=== PATIENT | male | born 1945 | race Caucasian/White ===

== ENCOUNTER 2021-10-03 10:07 | Inpatient (IN) | payer OTHER ==
[2021-10-03] MEDS ORDERED: Sodium Chloride 0.9% 10 ML Syringe FLUSH PRN (10:30)
[2021-10-03] MEDS ORDERED: Furosemide 40 MG/4 ML VIAL IV ONE (10:30)
--- NOTE | 2021-10-03 11:18 | EDM.PDOC ---
ED HPI GENERAL MEDICAL PROBLEM - General Chief Complaint: Lower Extremity Injury/Pain Stated Complaint: swelling in the abdomen and legs Time Seen by Provider: 10/03/21 10:20 Source of Information: Reports: Patient History Limitations: Reports: No Limitations - History of Present Illness INITIAL COMMENTS - FREE TEXT/NARRATIVE: Patient presents to the ED for increased swelling in his legs and abdomen over the last several days. He normally goes to the [facility] and was just seen there last month for a check up. Said he was referred to gastroenterology in [place] at [facility] for cirrhosis, but has not been there yet. History of lheavy drinker, no longer. Is not on a diuretic. Lives at home alone. Minimal shortness of breath. did have some loose stools last week that were black, but no longer and he had taken something over the counter prior to this and is unsure of what it was. No pain, no fever, no cough. Is accompanied by a friend. Legs are more painful is he stands on them. better at rest. Can lay flat to sleep. Bilateral Foot Pain Score (Numeric/FACES): 10 - Related Data Allergies Allergy/AdvReac Type Severity Reaction Status Date / Time No Known Allergies Allergy Verified 10/03/21 11:33 Home Meds: Home Meds Albuterol Sulfate [Albuterol Sulfate Hfa] 2 puff IH Q6H PRN 10/03/21 [History] Cholecalciferol (Vitamin D3) [Vitamin D3] 2,000 unit PO DAILY 10/03/21 [History] Dabigatran Etexilate Mesylate [Pradaxa] 150 mg PO BID 10/03/21 [History] Glucosamine Sulfate Dipot Chlr [Glucosamine] 1,000 mg PO BID PRN 10/03/21 [History] Ranitidine [Zantac] 150 mg PO BID PRN 10/03/21 [History] Terazosin [Hytrin] 4 mg PO BEDTIME 10/03/21 [History] Past Medical History Cardiovascular History: Reports: Afib, High Cholesterol, Hypertension Respiratory History: Reports: Other (See Below) (former smoker) Gastrointestinal History: Reports: Cirrhosis (grade one varices ,), GERD, Other (See Below) (crohns disease, portal hypertension, splenomegaly) Genitourinary History: Reports: Prostate Disorder (BPH and ED) Dermatologic History: Reports: Other (See Below) (rosacea) - Past Surgical History GI Surgical History: Reports: Cholecystectomy, Colon (right hemicolecomy due to crohns), EGD ( with grade 1 varices 12/2020) Social & Family History - Tobacco Use Tobacco Use Status *Q: Former Tobacco User Month/Year Tobacco Last Used: 09/1976 - Alcohol Use Date/Time of Last Drink Comment: 1993 Alcohol Use in Last Twelve Months: No Review of Systems - Review of Systems Review Of Systems: See Below Constitutional: Reports: Weakness Eyes: Reports: No Symptoms Ears: Reports: No Symptoms Nose: Reports: No Symptoms Mouth/Throat: Reports: No Symptoms Respiratory: Reports: Shortness of Breath (with activity) Cardiovascular: Reports: Irregular Heart Rate (chronically) GI/Abdominal: Reports: Other (diarrhea and black ) ED EXAM, GENERAL - Physical Exam Exam: See Below Exam Limited By: Other (slight confusion) General Appearance: Alert Eye Exam: Bilateral Eye: EOMI, Normal Inspection, PERRL Ears: Normal External Exam Nose: Normal Inspection, Normal Mucosa Throat/Mouth: Normal Inspection, Normal Lips, Normal Voice, No Airway Compromise Head: Atraumatic Neck: No: Lymphadenopathy (L), Lymphadenopathy (R) Respiratory/Chest: Crackles (bases), Other (increased work of breathing) Cardiovascular: Irregularly Irregular GI/Abdominal: Other (large, obese, dense edema in the skin, hepatomegaly large panus) Back Exam: Other (piting edema on the buttocks) Neurological: Alert, Confused, Other (pleasant and cooopeative) Skin Exam: Other (edema in th elower extremities to the knees circumferentially, in the upper legs posteriorly. dense swelling) #1 Interpretation EKG Date: 10/03/21 Time: 10:53 Rhythm: A-Fib Rate (Beats/Min): 74 P-Wave: Absent QT: Prolonged Comparison: NA - No Prior EKG Course - Vital Signs Last Recorded V/S: Last Vital Signs Temp 36.6 C 10/03/21 15:45 Pulse 67 10/03/21 16:00 Resp 18 10/03/21 16:00 BP 106/42 L 10/03/21 16:00 Pulse Ox 98 10/03/21 16:00 - Orders/Labs/Meds Orders: Active Orders 24 hr Category Date Time Status Patient Status [ADT] Routine ADT 10/03/21 16:12 Active Cardiac Monitoring [RC] . DIRECTED Care 10/03/21 15:34 Active Dumont Catheter Insertion [Insert Urinary Catheter] [OM. Care 10/03/21 13:30 Ordered PC] Q24H Urinary Catheter Assessment [RC] ASDIRECTED Care 10/03/21 13:21 Active CULTURE URINE [RM] Stat Lab 10/03/21 13:33 Received RED BLOOD CELLS LP [BBK] Stat Lab 10/03/21 10:46 Results TYPE AND SCREEN [BBK] Stat Lab 10/03/21 10:46 Results Sodium Chloride 0.9% [Normal Saline] 1,000 ml Med 10/03/21 11:30 Active IV ASDIRECTED Sodium Chloride 0.9% [Saline Flush] Med 10/03/21 10:30 Active 10 ml FLUSH ASDIRECTED PRN Blood Transfusion Reflex Orders [OM.PC] Routine Oth 10/03/21 14:40 Ordered Peripheral IV Insertion Adult [OM.PC] Routine Oth 10/03/21 10:30 Ordered Medication Orders Sodium Chloride (Normal Saline) 1,000 mls @ 150 mls/hr IV ASDIRECTED ISAIAS Last Admin: 10/03/21 11:50 Dose: 150 mls/hr Documented by: LACEY Sodium Chloride (Sodium Chloride 0.9% 10 Ml Syringe) 10 ml FLUSH ASDIRECTED PRN PRN Reason: Keep Vein Open Labs: Laboratory Tests 10/03/21 10/03/21 10/03/21 Range/Units 10:46 10:46 10:46 WBC 4.1 (4.0-10.0) x10^3/uL RBC 2.25 L (4.5-6.0) x10^6/uL Hgb 6.5 L* (14.0-18.0) g/dL Hct 19.2 L (40.0-52.0) % MCV 85.3 (78.0-93.0) fL MCH 28.9 (26.0-32.0) pg MCHC 33.9 (32.0-36.0) g/dL RDW Coeff of [place] 17.4 H (10.0-15.0) % Plt Count 142 (130-400) x10^3/uL Immature Gran % (Auto) 0.50 H (0.00-0.43) % Neut % (Auto) 74.5 (50.0-80.0) % Lymph % (Auto) 7.5 L (25.0-50.0) % [place] % (Auto) 12.4 H (2.0-11.0) % Eos % (Auto) 4.4 H (0.0-4.0) % Baso % (Auto) 0.7 (0.2-1.2) % Neut # (Auto) 3.1 (1.8-7.7) x10^3/uL Lymph # (Auto) 0.3 L (1.0-4.8) x10^3/uL [place] # (Auto) 0.5 (0.0-0.8) x10^3/uL Eos # (Auto) 0.2 (0.0-0.5) x10^3/uL Baso # (Auto) 0.0 (0.0-0.2) x10^3/uL Immature Gran # (Auto) 0.02 (0.00-0.07) x10^3/uL PT 31.2 H (9.9-12.5) SEC INR 2.8 (2.0-3.5) Sodium 134 L (136-145) mmol/L Potassium 4.6 (3.5-5.1) mmol/L Chloride 100 (98-107) mmol/L Carbon Dioxide 23 (21-32) mmol/L Anion Gap 15.6 H (5-15) mmol/L BUN 53 H (7-18) mg/dL Creatinine 2.2 H (0.70-1.30) mg/dL Est Cr Clr Drug Dosing TNP Estimated GFR (MDRD) 29 Glucose 107 H (70-99) mg/dL Calcium 8.4 L (8.5-10.1) mg/dL Corrected Calcium 9.9 (8.5-10.1) mg/dL Total Bilirubin 2.9 H (0.2-1.0) mg/dL AST 53 H (15-37) U/L ALT 40 (16-63) U/L Alkaline Phosphatase 107 (46-116) U/L Ammonia (19-54) ug/dL NT-Pro-B Natriuret Pep 1450 H (<=125) pg/mL Total Protein 5.0 L (6.4-8.2) g/dL Albumin 2.1 L (3.4-5.0) g/dL Globulin 2.9 Albumin/Globulin Ratio 0.72 Lipase 397 H (73-393) U/L Urine Color (YELLOW) Urine Appearance (CLEAR) Urine pH (5.0-8.0) Ur Specific [place] Urine Protein (NEGATIVE) mg/dL Urine Glucose (UA) (NEGATIVE) mg/dL Urine Ketones (NEGATIVE) mg/dL Urine Occult Blood (NEGATIVE) Urine Nitrite (NEGATIVE) Urine Bilirubin (NEGATIVE) Urine Urobilinogen (0.2) EU/dL Ur Leukocyte Esterase (NEGATIVE) Urine RBC (NOT SEEN) /HPF Urine WBC (NOT SEEN) /HPF Urine Bacteria (NOT SEEN) /HPF Urine Mucus (NOT SEEN) /LPF SARS CoV-2 RNA Rapid NANDA (NEGATIVE) Blood Type Gel Antibody Screen Crossmatch 10/03/21 10/03/21 10/03/21 Range/Units 10:46 10:46 12:59 WBC (4.0-10.0) x10^3/uL RBC (4.5-6.0) x10^6/uL Hgb (14.0-18.0) g/dL Hct (40.0-52.0) % MCV (78.0-93.0) fL MCH (26.0-32.0) pg MCHC (32.0-36.0) g/dL RDW Coeff of [place] (10.0-15.0) % Plt Count (130-400) x10^3/uL Immature Gran % (Auto) (0.00-0.43) % Neut % (Auto) (50.0-80.0) % Lymph % (Auto) (25.0-50.0) % [place] % (Auto) (2.0-11.0) % Eos % (Auto) (0.0-4.0) % Baso % (Auto) (0.2-1.2) % Neut # (Auto) (1.8-7.7) x10^3/uL Lymph # (Auto) (1.0-4.8) x10^3/uL [place] # (Auto) (0.0-0.8) x10^3/uL Eos # (Auto) (0.0-0.5) x10^3/uL Baso # (Auto) (0.0-0.2) x10^3/uL Immature Gran # (Auto) (0.00-0.07) x10^3/uL PT (9.9-12.5) SEC INR (2.0-3.5) Sodium (136-145) mmol/L Potassium (3.5-5.1) mmol/L Chloride (98-107) mmol/L Carbon Dioxide (21-32) mmol/L Anion Gap (5-15) mmol/L BUN (7-18) mg/dL Creatinine (0.70-1.30) mg/dL Est Cr Clr Drug Dosing Estimated GFR (MDRD) Glucose (70-99) mg/dL Calcium (8.5-10.1) mg/dL Corrected Calcium (8.5-10.1) mg/dL Total Bilirubin (0.2-1.0) mg/dL AST (15-37) U/L ALT (16-63) U/L Alkaline Phosphatase (46-116) U/L Ammonia 165 H (19-54) ug/dL NT-Pro-B Natriuret Pep (<=125) pg/mL Total Protein (6.4-8.2) g/dL Albumin (3.4-5.0) g/dL Globulin Albumin/Globulin Ratio Lipase (73-393) U/L Urine Color (YELLOW) Urine Appearance (CLEAR) Urine pH (5.0-8.0) Ur Specific [place] Urine Protein (NEGATIVE) mg/dL Urine Glucose (UA) (NEGATIVE) mg/dL Urine Ketones (NEGATIVE) mg/dL Urine Occult Blood (NEGATIVE) Urine Nitrite (NEGATIVE) Urine Bilirubin (NEGATIVE) Urine Urobilinogen (0.2) EU/dL Ur Leukocyte Esterase (NEGATIVE) Urine RBC (NOT SEEN) /HPF Urine WBC (NOT SEEN) /HPF Urine Bacteria (NOT SEEN) /HPF Urine Mucus (NOT SEEN) /LPF SARS CoV-2 RNA Rapid NANDA Negative (NEGATIVE) Blood Type A POSITIVE Gel Antibody Screen Negative Crossmatch See Detail 10/03/21 Range/Units 13:33 WBC (4.0-10.0) x10^3/uL RBC (4.5-6.0) x10^6/uL Hgb (14.0-18.0) g/dL Hct (40.0-52.0) % MCV (78.0-93.0) fL MCH (26.0-32.0) pg MCHC (32.0-36.0) g/dL RDW Coeff of [place] (10.0-15.0) % Plt Count (130-400) x10^3/uL Immature Gran % (Auto) (0.00-0.43) % Neut % (Auto) (50.0-80.0) % Lymph % (Auto) (25.0-50.0) % [place] % (Auto) (2.0-11.0) % Eos % (Auto) (0.0-4.0) % Baso % (Auto) (0.2-1.2) % Neut # (Auto) (1.8-7.7) x10^3/uL Lymph # (Auto) (1.0-4.8) x10^3/uL [place] # (Auto) (0.0-0.8) x10^3/uL Eos # (Auto) (0.0-0.5) x10^3/uL Baso # (Auto) (0.0-0.2) x10^3/uL Immature Gran # (Auto) (0.00-0.07) x10^3/uL PT (9.9-12.5) SEC INR (2.0-3.5) Sodium (136-145) mmol/L Potassium (3.5-5.1) mmol/L Chloride (98-107) mmol/L Carbon Dioxide (21-32) mmol/L Anion Gap (5-15) mmol/L BUN (7-18) mg/dL Creatinine (0.70-1.30) mg/dL Est Cr Clr Drug Dosing Estimated GFR (MDRD) Glucose (70-99) mg/dL Calcium (8.5-10.1) mg/dL Corrected Calcium (8.5-10.1) mg/dL Total Bilirubin (0.2-1.0) mg/dL AST (15-37) U/L ALT (16-63) U/L Alkaline Phosphatase (46-116) U/L Ammonia (19-54) ug/dL NT-Pro-B Natriuret Pep (<=125) pg/mL Total Protein (6.4-8.2) g/dL Albumin (3.4-5.0) g/dL Globulin Albumin/Globulin Ratio Lipase (73-393) U/L Urine Color Yellow (YELLOW) Urine Appearance Clear (CLEAR) Urine pH 5.5 (5.0-8.0) Ur Specific [place] 1.015 Urine Protein Negative (NEGATIVE) mg/dL Urine Glucose (UA) Negative (NEGATIVE) mg/dL Urine Ketones Negative (NEGATIVE) mg/dL Urine Occult Blood Trace-intact H (NEGATIVE) Urine Nitrite Negative (NEGATIVE) Urine Bilirubin Negative (NEGATIVE) Urine Urobilinogen 0.2 (0.2) EU/dL Ur Leukocyte Esterase Trace H (NEGATIVE) Urine RBC 0-5 (NOT SEEN) /HPF Urine WBC 5-10 H (NOT SEEN) /HPF Urine Bacteria Rare (NOT SEEN) /HPF Urine Mucus Rare H (NOT SEEN) /LPF SARS CoV-2 RNA Rapid NANDA (NEGATIVE) Blood Type Gel Antibody Screen Crossmatch Meds: Medications Generic Name Dose Route Start Last Admin Trade Name Freq PRN Reason Stop Dose Admin Sodium Chloride 1,000 mls @ 150 mls/hr 10/03/21 11:30 10/03/21 11:50 Normal Saline IV 150 mls/hr ASDIRECTED ISAIAS Administration Sodium Chloride 10 ml 10/03/21 10:30 Sodium Chloride 0.9% 10 Ml Syringe FLUSH ASDIRECTED PRN Keep Vein Open Discontinued Medications Generic Name Dose Route Start Last Admin Trade Name Freq PRN Reason Stop Dose Admin Furosemide 40 mg 10/03/21 10:30 10/03/21 10:52 Furosemide 40 Mg/4 Ml Vial IV 10/03/21 10:31 40 mg ONETIME ONE Administration Pantoprazole Sodium 80 mg 10/03/21 11:28 10/03/21 11:51 Pantoprazole 40 Mg Vial IVPUSH 10/03/21 11:29 80 mg ONETIME ONE Administration - Radiology Interpretation Free Text/Narrative:: chest x-ray with no infiltrate, effusion, pneumothorax or edema. Pulmonary hyperinflation. interpreted by radiology - Re-Assessments/Exams Free Text/Narrative Re-Assessment/Exam: Patient was initially given an iv, lasix 40 mg and evaluation was started. old records obtained from [facility]\ Old records with diagnosis of cirrhosis greater than one year. REcently seen in July by Co with hemoglobin of 11, platelets of 130, normal creatinine, t bili of 4.1 and direct of 1.1. pradaxa was restarted. Was told to hold lasix and spironlactone. referred to gastroenterology at [place] for cirrhosis. Last EGD was 12/2020 with grade 1 varices, pulmonary hypertension AFP was 25.1 ( normal is les than 8) stress test 03/2020 with no reversible defects , a fixed apical defect and an ejection fraction of 55% He was on vit D3 2 tabs daily Pradaxa 150 mg bid potassium 20 meq daily and spironolactone and lasix were held. hemoglobin returns at 6.5, no active bleeding but history of grade 1 varices, on pradaxa, blood pressure is stable but soft. Large amount of fluid overload already, concerning for giving large fluid bolus. Will start slow NS at 100 an hour , give protonix 80 mg IVP. Do not have type specific blood available. ammonia is elevated and will need attention, difficulty getting out of bed, will not start lactulose in the ED. BNP elevated, has been in the past. lipase elevated, no abdominal pain. INR elevated with concern for end stage liver disease. 10/03/21 12:19 call to [facility] for possible transfer. Call back at 12:20 no beds available 12:[address] [facility] for possible transfer. Will check and call back. Continues to be stable, no bleeding, no urine output. Creatinine is slightly elevated at 2.2. Needs paracentesis, type specific blood, EGD, diuresis, cardiology, gastroenterology referral and evaluation. 10/03/21 12:57 10/03/21 13:00 [facility] calls back, unable to take the patient, no hold list 10/03/21 13:31 Call to [facility] call. patient is placed on hold list. No beds in state at higher level of care. Do not have praxibind. no acute bleeding. Will type and screen and attempt to get blood here. dumont catheter insertion due to inability to get up by self for urinal and accurate I & O 10/03/21 14:42 we do have his type of blood available. Will give two units. Still awaiting call back from [facility] 10/03/21 15:36 blood first unit is started, stable, still no bleeding. call to [facility], he is on the list for transfer. will have to admit here due to no beds available. Will await his room upstairs for lactulose treatment for ammonia/ will have to use kcentra for bleeding if it occurs. Call to [facility] for admission Departure - Departure Time of Disposition: 15:38 Disposition: Admitted As Inpatient 68 Clinical Impression: Anemia, GI bleed, Increased ammonia level, Thrombocytopenia, Elevated INR, Cirrhosis of liver, Elevated lipase, JUSTINA (acute kidney injury), CHF (congestive heart failure) - Discharge Information Referrals: Kyung Griffin MD [Primary Care Provider] - Forms: ED Department Discharge Additional Instructions: use ed note for admission h & P Sepsis Event Note (ED) - Focused Exam Vital Signs: Vital Signs Temp Temp Pulse Resp BP Pulse Ox 10/03/21 16:00 67 18 106/42 L 98 10/03/21 15:45 36.6 C 69 18 101/44 L 100 10/03/21 15:32 36.2 C 69 18 101/49 L 100 10/03/21 12:51 70 18 93/40 L 100 10/03/21 11:53 35.9 C L 60 14 100/30 L 100 10/03/21 11:51 96 18 103/30 L 96 10/03/21 10:10 36.0 C L 69 20 109/31 L 100 - My Orders Last 24 Hours: My Active Orders 10/03/21 10:30 Sodium Chloride 0.9% [Saline Flush] 10 ml FLUSH ASDIRECTED PRN Peripheral IV Insertion Adult [OM.PC] Routine 10/03/21 10:46 RED BLOOD CELLS LP [BBK] Stat TYPE AND SCREEN [BBK] Stat 10/03/21 11:30 Sodium Chloride 0.9% [Normal Saline] 1,000 ml IV ASDIRECTED 10/03/21 13:21 Urinary Catheter Assessment [RC] ASDIRECTED 10/03/21 13:30 Dumont Catheter Insertion [Insert Urinary Catheter] [OM.PC] Q24H 10/03/21 13:33 CULTURE URINE [RM] Stat 10/03/21 14:40 Blood Transfusion Reflex Orders [OM.PC] Routine 10/03/21 15:34 Cardiac Monitoring [RC] . DIRECTED - Assessment/Plan Last 24 Hours: My Active Orders 10/03/21 10:30 Sodium Chloride 0.9% [Saline Flush] 10 ml FLUSH ASDIRECTED PRN Peripheral IV Insertion Adult [OM.PC] Routine 10/03/21 10:46 RED BLOOD CELLS LP [BBK] Stat TYPE AND SCREEN [BBK] Stat 10/03/21 11:30 Sodium Chloride 0.9% [Normal Saline] 1,000 ml IV ASDIRECTED 10/03/21 13:21 Urinary Catheter Assessment [RC] ASDIRECTED 10/03/21 13:30 Dumont Catheter Insertion [Insert Urinary Catheter] [OM.PC] Q24H 10/03/21 13:33 CULTURE URINE [RM] Stat 10/03/21 14:40 Blood Transfusion Reflex Orders [OM.PC] Routine 10/03/21 15:34 Cardiac Monitoring [RC] . DIRECTED
[2021-10-03 11:23] LABS: CHLORIDE,CL 100 mmol/L (98-107); SODIUM,NA 134 mmol/L (136-145)
[2021-10-03 11:26] LABS: ANION GAP 15.6 mmol/L (5-15)
[2021-10-03] MEDS ORDERED: Pantoprazole 40 MG Vial IVPUSH ONE (11:28)
[2021-10-03] MEDS ORDERED: Sodium Chloride 0.9% 1,000 ML IV SCH (11:30)
--- NOTE | 2021-10-03 11:30 | CR ---
[id number] RAD/RAD Chest PA or AP 1V EXAM: RAD Chest PA or AP 1V INDICATION: Shortness of breath. COMPARISON: None. DISCUSSION: Elevation of the right hemidiaphragm. Cardiomediastinal silhouette is enlarged in size and contour. No infiltrate, effusion, pneumothorax, or edema. Pulmonary hyperinflation. IMPRESSION: No acute cardiopulmonary abnormality. Luther Millard DO 10/03/21 1129 Thank you for allowing us to participate in the care of your patient.
[2021-10-03] MEDS ORDERED: Albuterol HFA 18 Gm Inhaler INH PRN (18:43)
[2021-10-03] MEDS ORDERED: Doxazosin 4 MG Tab PO SCH (20:00)
[2021-10-03] MEDS: Lactulose Soln 10 GM/15 ML 30 ML UD Cup PO SCH (20:08)
--- NOTE | 2021-10-04 01:06 | HP ---
CHIEF COMPLAINT: Lower extremity swelling. HISTORY OF PRESENT ILLNESS: The patient presented to the emergency room at [facility] earlier this afternoon for increased swelling in his legs and abdomen over the past several days. The patient normally goes to the [facility] in [place] and was just seen there last month for a checkup. The patient states that he was referred to Gastroenterology at [facility] in [place] and had appointment coming up in a couple of weeks. He states he was referred to [place] for his cirrhosis. The patient has a history of drinking, but quit in 1993. History of cigarette smoking, but quit in 1976. The patient does live at home alone. The patient states he has minimal shortness of breath. He was recently prescribed an albuterol inhaler for his shortness of breath. The patient states he did have some loose stools last week that were very black, but those have stopped. He did try taking some [id number] antidiarrheal, but does not remember the name of the medication. The patient states he is feeling very weak. He denies any chest pain or palpitations. He states his legs feel heavy. The swelling is bilateral. The patient has not had any recent infections. No fevers or chills. The patient denies any headache, dizziness, or lightheadedness. He states he feels somewhat foggy. The patient is able to lie flat without any shortness of breath. The patient denies any pain. No cough. The patient states his abdomen feels distended. The patient denies any numbness, tingling, or paresthesia to either lower extremity. Patient is slow to respond to questions. Chest x-ray in the emergency room did not show any infiltrates, effusion or pneumothorax. 1 unit of blood was started in the emergency room. The patient was also started on IV fluids in the emergency room. We will hold IV fluids upon admission to the floor. The patient was given 40 mg of IV Lasix with minimal output. Leblanc catheter was placed in the emergency room. Old records from [facility] show cirrhosis greater than 1 year. Recently seen in July by the MD with a hemoglobin of 11, platelets 130, normal creatinine of 1.4, and a total bilirubin of 4.1. At that time, his Pradaxa was restarted for Atrial Fibrillation. He was told to hold his Lasix and spironolactone until seen by GI services at [facility]. Last EGD was in 12/2020 which showed grade 1 varices with pulmonary hypertension and AFP was 25.1. The patient had a stress test in 03/2020 with no reversible defects and a fixed apical defect with an ejection fraction of 55%. PAST MEDICAL HISTORY: 1. Permanent atrial fibrillation. 2. Idiopathic esophageal varices without bleeding. 3. Alcoholic cirrhosis of liver without ascites. 4. Long-term use of anticoagulants. 5. Corporal venous occlusive erectile dysfunction. 6. Essential hypertension. 7. Impaired fasting glucose. 8. Morbid obesity. 9. Regional enteritis. 10.Rosacea. 11.Splenomegaly. 12.Vitamin D deficiency. 13.BPH. 14.Cirrhosis of liver. 15.GERD. 16.History of alcohol abuse, quit 1993. 17.Former tobacco user, quit 1976. PAST SURGICAL HISTORY: 1. Cholecystectomy. 2. History of a right hemicolectomy secondary to Crohn's. 3. EGD with grade 1 varices. FAMILY HISTORY: Noncontributory. SOCIAL HISTORY: Former tobacco user, quit in 1976. History of alcohol abuse, quit in 1993. The patient does not use any illegal drugs. The patient lives at home alone. The patient sees Dr. Kyung Griffin at the [facility]. ALLERGIES: No known allergies. CODE STATUS: Code 2. MEDICATIONS: 1. Albuterol HFA 2 puffs every 6 hours as needed for shortness of breath. 2. Pradaxa 150 mg 1 capsule p.o. twice daily. 3. Furosemide 40 mg 1 tablet p.o. twice daily. 4. Glucosamine 750 mg 1 tablet p.o. twice daily. 5. Potassium chloride 20 mEq 1 tablet p.o. daily. 6. Ranitidine 150 mg 1 tablet p.o. daily. 7. Spironolactone 100 mg 1 tablet p.o. in the a.m. and 1/2 tablet in the p.m. 8. Terazosin 4 mg 1 capsule p.o. daily. 9. Cholecalciferol 1000 international units 1 tablet p.o. daily. IMMUNIZATIONS: All are up to date. LABORATORY STUDIES: 1. CBC: White blood cell count 4.1, hemoglobin 6.5, hematocrit 19.2, platelets 142,000. 2. PT 31.2, INR 2.8. 3. CMP: Sodium 134, potassium 4.6, chloride 100, CO2 23, anion gap 15.6, BUN 53, creatinine 2.2, GFR 29, glucose 107, calcium 8.4, total bilirubin 2.9, AST 53, ALT 40, alkaline phosphatase 107, total protein 5.0. 4. Ammonia 165. 5. BNP 1450. 6. Lipase 397. 7. COVID-19 - negative. REVIEW OF SYSTEMS: See HPI. PHYSICAL EXAMINATION: Vital Signs: Temperature 97.8, respiratory rate 18, pulse 67, blood pressure 109/46, oxygen saturation 100% on room air. Skin: Fragile, intact, lukewarm, pale/crews. Respiratory: Appears SOB with talking, lungs are very decreased throughout. No wheezing. No rhonchi. Cardiovascular: Irregularly irregular rhythm, regular rate. Abdomen: Distended, nontender. Bowel sounds are hypoactive x4. Extremities: Bilateral dependant lower extremity edema +3. Neurological: The patient is intermittently confused, oriented to self and place, disoriented to time, slow to respond. ASSESSMENT: 1. Gastrointestinal bleed, unknown source. 2. Fluid retention. 3. Acute renal failure. 4. Hepatorenal syndrome. 5. Hyperammonemia. 6. Chronic liver cirrhosis. 7. Atrial fibrillation, controlled on Pradaxa 8. Idiopathic esophageal varices without bleeding. 9. 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 10.Essential hypertension. 11.BPH. 12.Gastroesophageal reflux disease. 13.Morbid obesity. PLAN: A 76-year-old male patient is admitted to the acute care floor at [facility] for the above diagnoses. We will Hemoccult stool. We will consult Dr. Yoselyn Casey for internal medicine of this complex patient. Dr. Casey has been notified. Call was placed to [facility] in [place] for bed placement; however, no beds were available. We will continue to work on transferring the patient as he needs a higher level of care, specifically GI services. The patient wishes to be a code 2. The patient was given 1 unit of blood in the emergency room. We will hold home medications, except for albuterol and Hytrin. The patient will be started on IV Protonix, lactulose t.i.d., and saline lock IV. The patient is in guarded condition. We will recheck laboratory work in the morning. Dr. Yoselyn Casey will consult on the patient tomorrow. The patient will be on clear liquids as tolerated. Therapy services are not medically necessary at this time. Case Management to assist in discharge planning. Anticipate bed placement tomorrow. The patient was seen and examined by me as an [facility] provider. Total time for care and coordination, greater than 30 minutes. TB: 10/03/2021 19:36:14 MODL: 10/04/2021 00:58:48 /[id number] MTDD
[2021-10-04 07:36] LABS: CHLORIDE,CL 103 mmol/L (98-107); SODIUM,NA 134 mmol/L (136-145)
[2021-10-04 07:47] LABS: ANION GAP 11.7 mmol/L (5-15)
[2021-10-04] MEDS: Lactulose Soln 10 GM/15 ML 30 ML UD Cup PO SCH ×3 (08:28→20:38)
[2021-10-04] MEDS: Pantoprazole 40 MG Vial IVPUSH SCH ×2 (08:29→20:30)
--- NOTE | 2021-10-04 09:00 | PN ---
Progress Note for LG GALLEGOS Date: 10/04/2021 Room #: [facility] CHIEF COMPLAINT: 1. Abdominal pain. 2. Leg swelling. SUBJECTIVE: Hospital day #2 on a 76-year-old male patient who was admitted yesterday for GI bleed with an unknown source, fluid retention, acute renal failure, hepatorenal syndrome, hyperammonemia, and chronic liver cirrhosis. The patient states today that he feels very fatigued. He feels short of breath. The patient has not had a cough. The patient denies any chest pain or palpitations. He states his legs still feel heavy. He has had minimal urine output. The patient denies any abdominal pain. The patient was started on lactulose last evening and has been stooling. The patient does not feel nauseated. He has had no vomiting. No fevers or chills. The patient denies any headaches, dizziness, or lightheadedness. The patient states overall he is not feeling any better. REVIEW OF SYSTEMS: See HPI. PHYSICAL EXAMINATION: Vital Signs: Weight 344.6 pounds, temperature 97.6, pulse 61 and irregular, blood pressure 104/48, respiratory rate 18, oxygen saturation 100% on room air. Skin: Pale, warm and dry. Intact. Respiratory: Lungs are very decreased, the patient is short of breath with speaking, no wheezing. Cardiovascular: Irregularly irregular rhythm, regular rate. Abdomen: Nontender, obese. Bowel sounds are hypoactive x4. Extremities: Bilateral dependent +3 pitting edema. Neurological: The patient is slow to respond. The patient is oriented to self and place. No new focal neurological deficits. LABORATORY STUDIES: 1. Lactic acid 2.0. 2. Phosphorus 4.5, magnesium 2.3. C-reactive protein 2.0, procalcitonin 0.3. ASSESSMENT: 1. Gastrointestinal bleed, unknown source. 2. Fluid retention. 3. Acute renal failure. 4. Hepatorenal syndrome. 5. Hyperammonemia. 6. Chronic liver cirrhosis. 7. Atrial fibrillation, controlled on Pradaxa. 8. Idiopathic esophageal varices without bleeding. 9. 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 10.Essential hypertension. 11.BPH. 12.Gastroesophageal reflux disease. 13.Morbid obesity. PLAN: Hospital day #2 on a 76-year-old male patient who was admitted to the acute care floor at [facility] for the above diagnoses. Continue with saline lock IV. Awaiting laboratory results at the time of this dictation. Continue on clear liquids as tolerated. Continue on lactulose and other medications as ordered. The patient wishes to be a code 2. The patient does want to transfer to a higher level of care should the need arise. We will hold off on any therapies at this time. Awaiting transfer to [facility] in [place] when a bed is available. Dr. Yoselyn Casey will consult on this patient today for Internal Medicine. Appreciate Dr. Casey's input. Recheck laboratory work tomorrow. This patient was seen and examined by me as an [facility] provider. Total time for care and coordination greater than 30 minutes. TB: 10/04/2021 07:34:12 MODL: 10/04/2021 08:56:33 /[id number]
[2021-10-04] MEDS ORDERED: Furosemide 40 MG/4 ML VIAL IV ONE (13:17)
[2021-10-04] MEDS ORDERED: Octreotide 100 MCG/ML SDV SUBCUT ONE (13:18)
[2021-10-04] MEDS ORDERED: cefTRIAXone 1 GM Vial IVPUSH SCH (13:30)
[2021-10-04] MEDS: Midodrine 5 MG Tab PO SCH ×2 (14:28→17:50)
[2021-10-04] MEDS ORDERED: Albumin 25% 50 ML IV SCH (16:00)
[2021-10-04] MEDS ORDERED: Phytonadione 5 MG Tab PO ONE (17:23)
[2021-10-04] MEDS ORDERED: Octreotide 100 MCG/ML SDV SUBCUT SCH (20:00)
--- NOTE | 2021-10-04 23:22 | DISCH ---
DATE OF DISCHARGE TO [facility]: 10/04/2021 ADMITTING DIAGNOSES: 1. Gastrointestinal bleed, unknown source. 2. Fluid retention. 3. Acute renal failure. 4. Hepatorenal syndrome. 5. Hyperammonemia. 6. Chronic liver cirrhosis. 7. Atrial fibrillation, controlled on Pradaxa. 8. Idiopathic esophageal varices without bleeding. 9. 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 10.Essential hypertension. 11.BPH. 12.Gastroesophageal reflux disease. 13.Morbid obesity. DISCHARGE DIAGNOSES: 1. Gastrointestinal bleed, unknown source. 2. Fluid retention. 3. Acute renal failure. 4. Hepatorenal syndrome. 5. Hyperammonemia. 6. Chronic liver cirrhosis. 7. Atrial fibrillation, controlled on Pradaxa. 8. Idiopathic esophageal varices without bleeding. 9. 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 10.Essential hypertension. 11.BPH. 12.Gastroesophageal reflux disease. 13.Morbid obesity. HISTORY OF PRESENT ILLNESS: A 76-year-old male patient had presented to the emergency room at [facility] yesterday afternoon for increasing swelling of his legs and abdomen over the past several days. The patient normally goes to the [facility] in [place] and was just seen there last month for a checkup. The patient states that he is referred to Gastroenterology at [facility] in [place] and had an appointment coming up in a couple of weeks. He states he was referred to [place] for his cirrhosis. The patient has a history of drinking, but quit in 1993. History of cigarette smoking, quit in 1976. The patient does live alone at home. The patient states he has had minimal shortness of breath. He was recently prescribed an albuterol inhaler for his shortness of breath. The patient states he did have some loose stools last week that were very black, those stools have stopped. He did try taking some [id number] antidiarrheal, but does not remember the name of the medication. The patient states he is feeling very weak. He denies any chest pain or palpitations. He states his legs feel heavy. The swelling is bilateral. The patient has not had any recent infections. No fevers or chills. The patient denies any headache, dizziness, or lightheadedness. He states he is feeling somewhat foggy. The patient is able to lie flat without any shortness of breath. The patient denies any pain. No cough. The patient states his abdomen feels distended. The patient denies any numbness, tingling or paresthesia of either lower extremities. The patient is slow to respond to questions. Chest x-ray in the emergency room did not show any infiltrates, effusion, or pneumothorax. 1 unit of blood was started in the emergency room. He did complete a total of 2 units of blood. The patient was also started on IV fluids in the emergency room. Fluids were discontinued upon admission to the floor. The patient was given 40 mg of IV Lasix with minimal output in the emergency room. Leblanc catheter was placed in the ER. Old records from the [facility] show cirrhosis greater than 1 year. Recently seen in July by the [facility] with a hemoglobin of 11, platelets 130, and normal creatinine of 1.4, total bilirubin of 4.1. At that time, his Pradaxa was discarded for atrial fibrillation. He was told to hold his Lasix and spironolactone until seen by GI services at [place]. Last EGD was in 12/2020, which showed grade 1 varices with pulmonary hypertension and AFP was 25.1. The patient had a stress test in 03/2020 with no reversible defect and a fixed apical defect with an ejection fraction of 55%. BRIEF HOSPITAL COURSE: The patient was given 2 units of blood during his admission. His hemoglobin did rebound to 7.2. The patient continues to have shortness of breath with activity. The patient remained hemodynamically stable. Blood pressures in the low 100 over the 40s to 50s. The patient did not have any fevers. The patient's urine output did increase. The patient was seen by Dr. Yoselyn Casey, internal medicine. The patient was started on octreotide and given Lasix. The patient was also given 1 g of IV Rocephin. The patient was also started on midodrine 5 mg 3 times daily. Protonix was started. The patient was given 1 dose of vitamin K for elevated INR of 2.8. The patient was started on lactulose yesterday and started having stools earlier this morning. The patient is very weak. The patient has not had any chest pain or palpitations. The patient has bilateral lower extremity +3 dependent pitting edema. The patient does not think he has had any fevers or chills. The patient is a code 2. CONSULTATIONS: Case Management for discharge planning. Therapies were held due to the patient's condition. ACTIVITY: As tolerated. DIET: Clear liquids. CODE STATUS: Code 2. DISCHARGE LABORATORY WORK: 1. CBC: White blood cell count 3.5, hemoglobin 7.2, hematocrit 20.9, platelets 101,000. 2. CMP: Sodium 134, potassium 4.7, chloride 103, CO2 of 24, anion gap 11.7, BUN 55, creatinine 2.2, GFR 29, glucose 104, calcium 8.1, AST 49, ALT 37, alkaline phosphatase 99. DISCHARGE IMAGING STUDIES: None. DISCHARGE MEDICATIONS: 1. Albuterol HFA 2 puffs every 6 hours as needed. 2. Lactulose 20 g p.o. 3 times daily. 3. Midodrine 5 mg p.o. 3 times daily. 4. Octreotide 100 mcg subcu 3 times daily. 5. Protonix 40 mg IV every 12 hours. REVIEW OF SYSTEMS: See HPI. PHYSICAL EXAMINATION: Vital Signs: Weight 344.6 pounds, temperature 97.6, pulse 54, blood pressure 117/39, respiratory rate 14, and oxygen saturation 97% on room air. Skin: Fragile, pale, intact. Respiratory: Lungs are very decreased throughout. Cardiovascular: Irregularly irregular rhythm, regular rate. Abdomen: Soft, nontender. Bowel sounds are hypoactive x4. The patient has third-spacing of the lower abdomen bilaterally. Extremities: Edema, +3 dependent, pitting, bilateral lower extremities edema. Neurological: The patient is alert. The patient is oriented to self and place. The patient is slow to respond. ASSESSMENT: 1. Gastrointestinal bleed, unknown source. 2. Fluid retention. 3. Acute renal failure. 4. Hepatorenal syndrome. 5. Hyperammonemia. 6. Chronic liver cirrhosis. 7. Atrial fibrillation, controlled on Pradaxa. 8. Idiopathic esophageal varices without bleeding. 9. 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 10.Essential hypertension. 11.BPH. 12.Gastroesophageal reflux disease. 13.Morbid obesity. PLAN: A 76-year-old male patient was admitted to the acute care floor at [facility] for the above diagnoses. Given the complex nature of the patient and the medical necessity for GI services, the patient will be transferred this evening to [facility] in [place]. The patient will be transferred via [facility]. EMTALA form completed. The patient agrees with the transfer and wishes to proceed. The patient was signed out to Dr. Tavarez, hospitalist at [facility]. All questions were answered. The patient was discharged in hemodynamically stable condition. This patient was seen and examined by me as an [facility] provider. Total time for care and coordination, greater than 30 minutes. TB: 10/04/2021 20:35:59 MODL: 10/04/2021 23:16:46 /[id number]
--- NOTE | 2021-10-05 06:49 | CONS ---
DATE OF CONSULTATION: 10/04/2021 REQUESTING PROVIDER: TAN Lua. REASON FOR CONSULT: Decompensated liver cirrhosis and hepatorenal. HISTORY OF PRESENT ILLNESS: This is a 76-year-old male with known cirrhosis, who quit drinking alcohol 25 years ago, who presented to the emergency room yesterday with increased swelling in his legs and abdomen over the last several days. The patient had been going [facility] and last month he was referred to Gastroenterology in [place] and that is where I have obtained the majority of his records. I was not able to find any recent lab work, but in his records, I did find a creatinine of 1.4 back in December, but for some reason, I suspect worsening renal function. His Aldactone that was 150 daily and his Lasix at was 40 mg twice daily were stopped. His weight was around 300 pounds when he was into the [facility]; it is 344 pounds today. He had anasarca. He did receive some IV Lasix yesterday, but further diuresis was limited by his low blood pressures. He is short of breath, but he can lie flat. He is having loose stools. He has been having black stools for the past week. He does have a history of grade 1 varices, but they have not felt that he could get them banded and he cannot be on beta blockers due to bradycardia. In fact, he had some heart rates into the high 40s on telemetry. He had black stools x2 this morning and his Hemoccult was mildly positive. His ammonia level was increased. He has not had any fevers. He denies abdominal pain. He lives at home alone. ALLERGIES: No known allergies. MEDICATIONS: His recent med list, which I did review from the [facility], showed him to be on albuterol as needed inhaler, Pradaxa 150 twice a day, terazosin 4 mg at bedtime, furosemide 40 mg twice daily, potassium 20 mEq every day, and Aldactone 100 in the morning and 50 in the evening. PAST MEDICAL HISTORY: Includes decompensated cirrhosis with ascites and grade 1 varices. The patient denies that he has ever had a paracentesis. He has morbid obesity. He otherwise has chronic kidney disease with previous creatinine 1.4. He has had vitamin D deficiency, rosacea, erectile dysfunction, BPH, splenomegaly possibly from cirrhosis, and portal hypertension. He has had atrial fibrillation. He has had Crohn's disease with right hemicolectomy for bleeding in 1993. He has had essential hypertension. He has had smoking, but in remission since 1976; impaired fasting glucose; history of alcoholism, quit in 1993; GERD; history of cholecystitis with cystectomy in 1993; previous Colles fracture of the wrist and previous ankle fracture. DICTATION ENDS HERE. MKA: 10/04/2021 17:19:33 MODL: 10/04/2021 22:43:16 /[id number]
--- NOTE | 2021-10-05 06:49 | CONS ---
DATE OF CONSULTATION: 10/04/2021 CONTINUATION: PAST SURGICAL HISTORY: Includes ankle surgery for fracture, wrist surgery for fracture, cholecystectomy, and right hemicolectomy. SOCIAL HISTORY: Quit smoking in 1976. Quit drinking in 1993. He is single. FAMILY HISTORY: His mother of an unspecified cancer. Father, heart disease. Brother, heart disease and an unspecified cancer. REVIEW OF SYSTEMS: General: Positive for weight gain based on our scale weights. He said he has never been this heavy, 344 pounds. He has not had any fever or chills. HEENT: No trouble swallowing. Cardiac: No chest pain. No palpitations. Respiratory: No cough, but he has been short of breath. GI: No abdominal pain. No nausea or vomiting. He has had black loose stools. Neurologic: He has been more tired and confused at times, but he is answering questions appropriately currently. Otherwise, all review of systems are obtained and negative unless otherwise stated. PHYSICAL EXAMINATION: Vital Signs: When I saw him at [facility], his temperature was 96.8, pulse 60, blood pressure 101/34, respiratory rate 16, and O2 of 97 on room air. General: He was in no acute distress. He was not overly jaundiced. His skin color was . Heart: Irregular with bradycardia. Lungs: Sounds are clear to auscultation bilaterally without crackles or wheezes. Abdomen: Distended with fluid wave. He has 1+ anasarca to his abdominal wall. Extremities: Warm and dry. He has 1+ edema to both ankles. Mental Status: He is alert. He is aware he is in the hospital. LAB WORK: When I saw him this morning, his white count had worsened down to 3.5; hemoglobin up to 7.2 after 2 units, it was 6.5; platelets down to 101. He has pancytopenia likely due to his splenomegaly from liver disease. INR yesterday was 2.8. Sodium 134, potassium 4.7, chloride 103, bicarb 24, BUN 55, creatinine 2.2 - stable from yesterday, glucose 104, lactic was 2, calcium corrected 9.8, AST 49, ALT 37, bilirubin up from 2.9 to 3.6, alkaline phosphatase 99, CRP was 2, and albumin was 1.9, lipase was 397 on admission, procalcitonin 0.13. Urine had 5 to 10 wbc's. He has a Leblanc in place with fred urine. COVID negative. MELD score is up to 31. He has a 52.6% predicted 3-month mortality. ASSESSMENT: 1. Decompensated liver cirrhosis. 2. Hepatic encephalopathy. 3. Chronic gastrointestinal bleed with known varices. 4. Ascites due to liver cirrhosis. 5. Hepatorenal syndrome. 6. Atrial fibrillation, rate controlled. Pradaxa has been stopped due to concern for GI bleeding. 7. Essential hypertension and BPH. We will hold his Cardura. He is more hypotensive. 8. Gastroesophageal reflux disease. 9. Morbid obesity. 10.Pancytopenia. PLAN: The patient is now on hospital day #2. I had had a phone conversation with Philip Srinivasan yesterday. The patient was getting transfused. He was recommended to start midodrine if needed for hypotension and the patient was recommended to transfer out to a higher level of care; however, none of the hospitals are currently accepting. Therefore, I will start the patient on midodrine 5 mg 3 times a day and octreotide subcu 100 mcg 3 times a day and also albumin 12.5 g of 25% q.8 hours to hopefully aid this hepatorenal syndrome and give the IV Lasix to aid in helping with his edema as I do feel that this is needed to help him feel better. We will give him 40 mg 1 time; he got 40 mg yesterday. We will get a hod carrier ultrasound to see if he has a large pocket of ascites and attempt a paracentesis. I will also empirically start him on Rocephin for SBP prophylaxis given the concern for GI bleeding. Clinically, he denied that he was having any abdominal pain to suggest SBP and he has not had spontaneous bacterial peritonitis by his report before. His white count is normal. We will continue to monitor hemoglobin. He does not need any further transfusion right now. He has been placed on IV Protonix and Philip Srinivasan continues to be the primary covering provider. I will also give him some oral vitamin K. We will repeat lab work tomorrow. I anticipate that his condition may stabilize and improve over the next few days or get worse. The patient has already made the decision that he does not want to pursue CPR. He would not be a transplant candidate given his age and obesity and he did I guess mention later to the nurse that he would not want to be transferred at this point either. We will continue the lactulose. We will repeat ammonia level tomorrow; it was up to 165. I think it is fine if he wants to have a clear liquid diet. He is not having any abdominal pain. He just had 2 loose black stools so far today and his lipase was mildly elevated, but he is not having any symptoms. I would hold off on any DVT prophylaxis other than some SCDs. MKA: 10/04/2021 17:29:07 MODL: 10/04/2021 21:01:01 /[id number]
== END 2021-10-04 20:34 | disposition short-term general hospital (02) | DRG 432 ==
LOC: VM.ED 10:07 → VM.MS 15:34
PROVIDERS: ADMIT Physician Assistant; ATTEND Nurse Practitioner Family
PROC: 30233N1 Transfusion of Nonautologous Red Blood Cells into Peripheral Vein, Percutaneous Approach (ICD-10-PCS; principal; 2021-10-03)
DX: K70.31 Alcoholic cirrhosis of liver with ascites (principal); D64.9 Anemia, unspecified; D69.6 Thrombocytopenia, unspecified; K76.7 Hepatorenal syndrome; K74.60 Unspecified cirrhosis of liver; K92.2 Gastrointestinal hemorrhage, unspecified; N17.9 Acute kidney failure, unspecified; R79.1 Abnormal coagulation profile; R79.89 Other specified abnormal findings of blood chemistry; E72.20 Disorder of urea cycle metabolism, unspecified; I48.91 Unspecified atrial fibrillation; E78.00 Pure hypercholesterolemia, unspecified; I11.0 Hypertensive heart disease with heart failure; I48.21 Permanent atrial fibrillation; I85.00 Esophageal varices without bleeding; Z20.822 Contact with and (suspected) exposure to COVID-19; K76.6 Portal hypertension; I13.0 Hypertensive heart and chronic kidney disease with heart failure and stage 1 through stage 4 chronic kidney disease, or unspecified chronic kidney disease; D61.818 Other pancytopenia; K72.90 Hepatic failure, unspecified without coma; N18.9 Chronic kidney disease, unspecified; E55.9 Vitamin D deficiency, unspecified; N52.9 Male erectile dysfunction, unspecified; E66.01 Morbid (severe) obesity due to excess calories; N40.0 Benign prostatic hyperplasia without lower urinary tract symptoms; K21.9 Gastro-esophageal reflux disease without esophagitis; I27.20 Pulmonary hypertension, unspecified; Z90.49 Acquired absence of other specified parts of digestive tract; Z87.891 Personal history of nicotine dependence; Z79.01 Long term (current) use of anticoagulants; Z79.899 Other long term (current) drug therapy; I50.9 Heart failure, unspecified
CPT/HCPCS: 36415; 36430; 71045; 80053; 81001; 82140; 83690; 83880; 85025; 85610; 86850; 86900; 86901; 86920; 86922; 87086; 87635; 93005; C9113; J1940; J7030; P9016; 51702; 83605; 83735; 84100; 84145; 86140; 96374; 96375; 99285-25; A9270-GY; G0328; J0696; P9047; U0002

== ENCOUNTER 2021-12-01 12:07 | Emergency (ER) | payer OTHER ==
[2021-12-01 12:58] LABS: CHLORIDE,CL 97 mmol/L (98-107); SODIUM,NA 134 mmol/L (136-145)
[2021-12-01 13:12] LABS: ANION GAP 12.3 mmol/L (5-15)
== END 2021-12-01 15:15 | disposition short-term general hospital (02) ==
LOC: VM.ED 12:07
DX: L03.031 Cellulitis of right toe (principal); K72.90 Hepatic failure, unspecified without coma; R60.1 Generalized edema; I48.91 Unspecified atrial fibrillation; I10 Essential (primary) hypertension; Z87.891 Personal history of nicotine dependence; Z20.822 Contact with and (suspected) exposure to COVID-19
CPT/HCPCS: 71045; 80053; 82140; 83880; 85025; 86140; 93005; 93010; 99284; 99284-25; U0002